=== PATIENT | male | born 1960 | race Caucasian/White ===

== ENCOUNTER 2018-10-28 05:15 | Emergency (ER) | payer OTHER ==
--- OUTSIDE RECORDS SUMMARY | 2018-10-28 05:17 | XMS REPORT ---
:1960 Author Organization eClinicalWorks Care Team Providers Name Role Phone Joce Lee Provider Role Unavailable Allergies, Adverse Reactions, Alerts Substance Reaction Event Type N.K.D.A. Info Not Available Non Drug Allergy Problems Problem Type Condition Code Onset Dates Condition Status Assessment Body mass index (BMI) of 40.0-44.9 Z68.41 Active in adult Assessment Pain, joint, knee, right M25.561 Active Assessment Morbid (severe) obesity due to E66.01 Active excess calories Assessment Sciatica of right side M54.31 Active Problem Pain, joint, knee, right M25.561 Active Problem Morbid (severe) obesity due to E66.01 Active excess calories Problem Sciatica of left side M54.32 Active Problem Body mass index (BMI) of 40.0-44.9 Z68.41 Active in adult Problem Unspecified internal derangement of M23.92 Active left knee Problem Acute pain of left knee M25.562 Active Medications Medication Code Code Instructions Start End Date Status Dosage System Date Uloric [facility][NOTE 3] 46707844173 80 MG Oral Active TAKE 1 TABLET BY MOUTH EVERY DAY Amlodipine [facility][NOTE 3] 85020531871 10-40 MG Oral Active TAKE 1 Besy-Benazepri CAPSULE BY l HCl MOUTH EVERY DAY Results No Known Results Summary Purpose eClinicalWorks Submission
[2018-10-28] MEDS ORDERED: IPRATROPIUM BROM 0.5MG/2.5ML ONE ×3 (05:50→07:40)
[2018-10-28] MEDS ORDERED: ALBUTEROL 2.5 MG/3 ML NEB SOL ONE ×3 (05:50→07:40)
[2018-10-28 06:22] LABS: Absolute Lymphocytes (CBC) 0.5 K/uL (0.7-4.9); Absolute Monocytes 0.9 K/uL (0.1-1.3); Absolute Neutrophil 4.4 K/uL (1.8-8.0); Basophils % 0.4 % (0-1.3); Eosinophils % 0.7 % (0-4.4); Hematocrit 51.4 % (39.6-49.0); Lymphocytes % 7.8 % (15.3-44.8); MPV 8.4 fL (7.6-11.3); Monocytes % 14.9 % (3.3-12.3); RBC Red Blood Cell Count 5.36 M/uL (4.33-5.43)
[2018-10-28] MEDS ORDERED: predniSONE 20 MG TAB ONE (06:22)
[2018-10-28 06:40] LABS: BUN Blood Urea Nitrogen 12 mg/dL (7-18); Bicarbonate 29 mmol/L (21-32); Glucose Level 94 mg/dL (74-106); Potassium 3.8 mmol/L (3.5-5.1); Sodium Level 144 mmol/L (136-145); Troponin (Emerg Dept Use Only) < 0.02 ng/mL (0.0-0.045)
--- NOTE | 2018-10-28 07:20 | ER ---
Nurse's Notes [facility] Name: Ayo Farrell Age: 57 yrs Sex: Male : 1960 Arrival Date: 10/28/2018 Time: 05:19 Bed 15 Private MD: Kenyon Collins V Diagnosis: Chronic obstructive pulmonary disease with (acute) exacerbation Presentation: 10/28 05:20 Presenting complaint: Patient states: I have been having a hard time breathing for the jb4 past 3 days. Transition of care: patient was not received from another setting of care. Onset of symptoms was October 25, 2018. Risk Assessment: Do you want to hurt yourself or someone else? Patient reports no desire to harm self or others. Initial Sepsis Screen: Does the patient meet any 2 criteria? RR > 20 per min. No. Patient's initial sepsis screen is negative. Does the patient have a suspected source of infection? No. Patient's initial sepsis screen is negative. Care prior to arrival: None. 05:20 Method Of Arrival: Ambulatory jb4 05:20 Acuity: GIORGIO 3 jb4 Triage Assessment: 05:20 General: Appears distressed, uncomfortable, Behavior is calm, cooperative, appropriate jb4 for age. Pain: Denies pain. EENT: No signs and/or symptoms were reported regarding the EENT system. Neuro: Level of Consciousness is awake, alert, obeys commands. Cardiovascular: Heart tones S1 S2 present Patient's skin is warm and dry. Respiratory: Reports shortness of breath on exertion cough that is productive, Airway is patent Respiratory effort is even, labored, Respiratory pattern is symmetrical, tachypnea Breath sounds are diminished bilaterally. Breath sounds with wheezes bilaterally. Onset: The symptoms/episode began/occurred gradually, the patient has moderate shortness of breath. GI: No signs and/or symptoms were reported involving the gastrointestinal system. : No signs and/or symptoms were reported regarding the genitourinary system. Derm: Skin is intact, Skin is pink, warm \\T\\ dry. Musculoskeletal: Circulation, motion, and sensation intact. Historical: - Allergies: 05:20 Iodine; jb4 - Home Meds: 05:20 Lotrel Oral [Active]; Urinol [Active]; jb4 - PMHx: 05:20 Gout; Hypertension; jb4 - PSHx: 05:20 Cyst removal; jb4 - Immunization history:: Adult Immunizations up to date, Flu vaccine is up to date. - Social history:: Smoking status: Patient uses tobacco products, smokes one pack cigarettes per day. Report quitting 3 days ago., Patient uses alcohol, occasionally. - Ebola Screening: : No symptoms or risks identified at this time. Screenin:20 Abuse screen: Denies threats or abuse. Nutritional screening: No deficits noted. jb4 Tuberculosis screening: No symptoms or risk factors identified. Fall Risk Gait- Normal/Bed Rest/Wheelchair (0 pts) Mental Status- Oriented to own ability (0 pts). Total Ball Fall Scale indicates No Risk (0-24 pts). Assessment: 05:20 General: See triage assessment.. Cardiovascular: Rhythm is sinus rhythm. jb4 06:22 Reassessment: Patient and/or family updated on plan of care and expected duration. Pain jb4 level reassessed. Respiratory: Airway is patent Respiratory effort is even, labored, Respiratory pattern is regular, tachypnea Breath sounds with wheezes bilaterally. 07:00 General: Appears in no apparent distress. comfortable, Behavior is calm, cooperative. rb1 Pain: Denies pain. Neuro: Level of Consciousness is awake, alert, obeys commands, Oriented to person, place, time, situation. Cardiovascular: Capillary refill < 3 seconds is brisk in bilateral fingers. Respiratory: Reports cough that is productive, Yellow sputum Airway is patent Respiratory effort is even, unlabored, Respiratory pattern is regular, symmetrical. GI: No signs and/or symptoms were reported involving the gastrointestinal system. : No signs and/or symptoms were reported regarding the genitourinary system. Derm: Skin is pink, warm \\T\\ dry. Musculoskeletal: Range of motion: intact in all extremities. 07:10 Reassessment: Dr. Sainz turned off the pt. oxygen to get a room air saturation. O2 sat rb1 on 3 L NC was 95% Pt. does not want to be admitted. 08:00 Reassessment: Patient appears in no apparent distress at this time. Patient and/or rb1 family updated on plan of care and expected duration. Pain level reassessed. Patient is alert, oriented x 3, equal unlabored respirations, skin warm/dry/pink. Pt. still does not wish to be admitted. Pt. stated, "I am ready to go home and get in my own bed. I feel better than I did when I first got here." Pt. was educated on COPD and was told to come back if he had difficulty breathing. Pt verbalized understanding. Patient denies pain at this time. Vital Signs: 05:20 BP 150 / 87; Pulse 89; Resp 23; Temp 98.3(O); Pulse Ox 81% on R/A; Weight 138.35 kg jb4 (R); Height 6 ft. 1 in. (185.42 cm) (R); Pain 0/10; 06:20 BP 140 / 102; Pulse 84; Resp 21; Pulse Ox 90% on 3 lpm NC; jb4 07:00 BP 150 / 99; Pulse 89; Resp 19; Pulse Ox 95% on 3 lpm NC; Pain 0/10; rb1 08:00 BP 135 / 99; Pulse 84; Resp 15; Pulse Ox 93% on R/A; Pain 0/10; rb1 05:20 Body Mass Index 40.24 (138.35 kg, 185.42 cm) jb4 ED Course: 05:19 Patient arrived in ED. es 05:20 Kenyon Collins MD is Private Physician. es 05:20 Arm band placed on left wrist. jb4 05:20 Patient has correct armband on for positive identification. Placed in gown. Bed in low jb4 position. Call light in reach. Side rails up X 1. school lunch monitor on. Pulse ox on. NIBP on. 05:28 Eren Smith, RN is Primary Nurse. jb4 05:30 Triage completed. jb4 05:38 Nader Sainz MD is Attending Physician. gs 06:00 Initial lab(s) drawn, by me, sent to lab. Inserted saline lock: 20 gauge in left jb4 antecubital area, using aseptic technique. Blood collected. Missed attempt(s): 20 gauge in right antecubital area. 06:43 XRAY Chest (1 view) In Process Unspecified. EDMS 07:19 Kenyon Collins MD is Referral Physician. gs 08:00 No provider procedures requiring assistance completed. IV discontinued, intact, rb1 bleeding controlled, No redness/swelling at site. Pressure dressing applied. Administered Medications: 05:42 Drug: AtroVENT Aerosol 0.5 mg Route: Inhalation; jb4 06:21 Follow up: Response: No adverse reaction; Wheezing unchanged jb4 05:43 Drug: Albuterol 2.5 mg Route: Inhalation; jb4 06:21 Follow up: Response: No adverse reaction; Wheezing unchanged jb4 06:14 Drug: predniSONE 40 mg Route: PO; jb4 06:28 Follow up: Response: No adverse reaction jb4 06:28 Drug: Albuterol 2.5 mg Route: Inhalation; jb4 06:54 Follow up: Response: No adverse reaction; Wheezing diminished jb4 06:29 Drug: AtroVENT Aerosol 0.5 mg Route: Inhalation; jb4 06:53 Follow up: Response: No adverse reaction; Wheezing diminished jb4 07:30 Drug: Albuterol 2.5 mg Route: Inhalation; rb1 07:30 Drug: AtroVENT Aerosol 0.5 mg Route: Inhalation; rb1 Outcome: 07:19 Discharge ordered by . gs 08:00 Discharged to home ambulatory. rb1 08:00 Condition: stable 08:00 Discharge instructions given to patient, Instructed on discharge instructions, follow up and referral plans. medication usage, Demonstrated understanding of instructions, follow-up care, medications, Prescriptions given X 3. 08:08 Patient left the ED. rb1 Signatures: Dispatcher [employer] EDMS Cinthya Concepcion Rebecca, RN RN rb1 Eren Smith RN RN jb4 Nader Sainz MD MD Corrections: (The following items were deleted from the chart) 05:35 05:20 Initial Sepsis Screen: Does the patient meet any 2 criteria? No. Patient's jb4 initial sepsis screen is negative. Does the patient have a suspected source of infection? No. Patient's initial sepsis screen is negative. jb4 07:00 05:20 Respiratory: Reports shortness of breath cough that is non-productive, Airway is jb4 patent Respiratory effort is even, labored, Respiratory pattern is symmetrical, tachypnea Breath sounds are diminished bilaterally. Breath sounds with wheezes bilaterally. Onset: The symptoms/episode began/occurred gradually, the patient has moderate shortness of breath jb4
--- NOTE | 2018-10-28 07:20 | EDPHYS ---
Physician Documentation [facility] Name: Ayo Farrell Age: 57 yrs Sex: Male : 1960 Arrival Date: 10/28/2018 Time: 05:19 Bed 15 Private MD: Kenyon Collins V ED Physician Nader Sainz HPI: 10/28 07:16 This 57 yrs old Male presents to ER via Ambulatory with complaints of gs Breathing Difficulty. 07:16 The patient has shortness of breath at rest. Onset: The symptoms/episode began/occurred gs 3 day(s) ago. Duration: The symptoms are continuous. The patient's shortness of breath is aggravated by coughing, exertion. Associated signs and symptoms: Pertinent negatives: fever. Severity of symptoms: At their worst the symptoms were moderate in the emergency department the symptoms are unchanged. The patient has experienced similar episodes in the past, several times. The patient has not recently seen a physician. Historical: - Allergies: 05:20 Iodine; jb4 - Home Meds: 05:20 Lotrel Oral [Active]; Urinol [Active]; jb4 - PMHx: 05:20 Gout; Hypertension; jb4 - PSHx: 05:20 Cyst removal; jb4 - Immunization history:: Adult Immunizations up to date, Flu vaccine is up to date. - Social history:: Smoking status: Patient uses tobacco products, smokes one pack cigarettes per day. Report quitting 3 days ago., Patient uses alcohol, occasionally. - Ebola Screening: : No symptoms or risks identified at this time. ROS: 07:16 All other systems are negative. gs Exam: 06:27 ECG was reviewed by the Attending Physician. gs 07:16 Head/Face: Normocephalic, atraumatic. Eyes: Pupils equal round and reactive to light, gs extra-ocular motions intact. Lids and lashes normal. Conjunctiva and sclera are non-icteric and not injected. Cornea within normal limits. Periorbital areas with no swelling, redness, or edema. ENT: Nares patent. No nasal discharge, no septal abnormalities noted. Tympanic membranes are normal and external auditory canals are clear. Oropharynx with no redness, swelling, or masses, exudates, or evidence of obstruction, uvula midline. Mucous membranes moist. Neck: Trachea midline, no thyromegaly or masses palpated, and no cervical lymphadenopathy. Supple, full range of motion without nuchal rigidity, or vertebral point tenderness. No Meningismus. Chest/axilla: Normal chest wall appearance and motion. Nontender with no deformity. No lesions are appreciated. Cardiovascular: Regular rate and rhythm with a normal S1 and S2. No gallops, murmurs, or rubs. Normal PMI, no JVD. No pulse deficits. Abdomen/GI: Soft, non-tender, with normal bowel sounds. No distension or tympany. No guarding or rebound. No evidence of tenderness throughout. Back: No spinal tenderness. No costovertebral tenderness. Full range of motion. Skin: Warm, dry with normal turgor. Normal color with no rashes, no lesions, and no evidence of cellulitis. MS/ Extremity: Pulses equal, no cyanosis. Neurovascular intact. Full, normal range of motion. Neuro: Awake and alert, GCS 15, oriented to person, place, time, and situation. Cranial nerves II-XII grossly intact. Motor strength 5/5 in all extremities. Sensory grossly intact. Cerebellar exam normal. Normal gait. 07:16 Constitutional: The patient appears alert, awake, in obvious distress, moderately distressed. 07:16 Respiratory: mild respiratory distress is noted, Respirations: tachypnea, that is mild, Breath sounds: decreased breath sounds, that are moderate, are located in both bases, rhonchi, that are mild, are scattered. Vital Signs: 05:20 BP 150 / 87; Pulse 89; Resp 23; Temp 98.3(O); Pulse Ox 81% on R/A; Weight 138.35 kg jb4 (R); Height 6 ft. 1 in. (185.42 cm) (R); Pain 0/10; 06:20 BP 140 / 102; Pulse 84; Resp 21; Pulse Ox 90% on 3 lpm NC; jb4 07:00 BP 150 / 99; Pulse 89; Resp 19; Pulse Ox 95% on 3 lpm NC; Pain 0/10; rb1 08:00 BP 135 / 99; Pulse 84; Resp 15; Pulse Ox 93% on R/A; Pain 0/10; rb1 05:20 Body Mass Index 40.24 (138.35 kg, 185.42 cm) jb4 MDM: 05:38 Patient medically screened. 07:16 ED course: much better sats 93 on room air refuses admission. 07:16 Differential diagnosis: Bronchitis CHF exacerbation, Chronic Obstructive Pulmonary gs Disease pneumonia. Data reviewed: vital signs, nurses notes. Response to treatment: the patient's symptoms have markedly improved after treatment. 10/28 05:39 Order name: Basic Metabolic Panel; Complete Time: 07:11 10/28 05:39 Order name: CBC with Diff; Complete Time: 06:27 gs 10/28 05:39 Order name: Troponin (emerg Dept Use Only); Complete Time: 07:11 gs 10/28 05:39 Order name: XRAY Chest (1 view) 10/28 05:39 Order name: EKG; Complete Time: 05:40 10/28 05:39 Order name: Cardiac monitoring; Complete Time: 05:42 gs 10/28 05:39 Order name: EKG - Nurse/Tech; Complete Time: 05:52 gs 10/28 05:39 Order name: IV Saline Lock; Complete Time: 06:15 10/28 05:39 Order name: Labs collected and sent; Complete Time: 06:15 10/28 05:39 Order name: O2 Per Protocol; Complete Time: 05:42 gs 10/28 05:39 Order name: O2 Sat Monitoring; Complete Time: 05:42 gs EC:27 Rate is 81 beats/min. Rhythm is regular. [place] interval is normal. QRS interval is gs prolonged. No Q waves. T waves are Flattened. Clinical impression: NSR w/ Non-specific ST/T Changes. Interpreted by me. Administered Medications: 05:42 Drug: AtroVENT Aerosol 0.5 mg Route: Inhalation; jb4 06:21 Follow up: Response: No adverse reaction; Wheezing unchanged jb4 05:43 Drug: Albuterol 2.5 mg Route: Inhalation; jb4 06:21 Follow up: Response: No adverse reaction; Wheezing unchanged jb4 06:14 Drug: predniSONE 40 mg Route: PO; jb4 06:28 Follow up: Response: No adverse reaction jb4 06:28 Drug: Albuterol 2.5 mg Route: Inhalation; jb4 06:54 Follow up: Response: No adverse reaction; Wheezing diminished jb4 06:29 Drug: AtroVENT Aerosol 0.5 mg Route: Inhalation; jb4 06:53 Follow up: Response: No adverse reaction; Wheezing diminished jb4 07:30 Drug: Albuterol 2.5 mg Route: Inhalation; rb1 07:30 Drug: AtroVENT Aerosol 0.5 mg Route: Inhalation; rb1 Disposition: 10/28/18 07:19 Discharged to Home. Impression: Chronic obstructive pulmonary disease with (acute) exacerbation. - Condition is Stable. - Discharge Instructions: Chronic Obstructive Pulmonary Disease, Steps to Quit Smoking. - Prescriptions for Zithromax Z- Felix 250 mg Oral Tablet - take 1 tablet by ORAL route as directed for 5 days Day 1 - take two (2) tablets one time. Day 2, 3, 4 , 5 take one (1) tablet once daily.; 6 tablet. Prednisone 20 mg Oral Tablet - take 2 tablet by ORAL route once daily for 5 days; 10 tablet. Albuterol Sulfate 90 mcg/actuation - inhale 1-2 puff by INHALATION route every 4-6 hours; 1 Inhaler. - Medication Reconciliation Form, Thank You Letter, Antibiotic Education, Prescription Opioid Use form. - Follow up: Kenyon Collins; When: 2 - 3 days; Reason: Re-evaluation by your physician. Signatures: Dispatcher [employer] EDMS Stacia Morales RN RN rb1 Eren Smith RN RN jb4 Nader Sainz MD MD gs Corrections: (The following items were deleted from the chart) 08:08 07:19 10/28/2018 07:19 Discharged to Home. Impression: Chronic obstructive pulmonary rb1 disease with (acute) exacerbation. Condition is Stable. Discharge Instructions: Chronic Obstructive Pulmonary Disease, Steps to Quit Smoking. Prescriptions for Zithromax Z-Felix 250 mg Oral Tablet - take 1 tablet by ORAL route as directed for 5 days Day 1 - take two (2) tablets one time. Day 2, 3, 4 , 5 take one (1) tablet once daily.; 6 tablet, Prednisone 20 mg Oral Tablet - take 2 tablet by ORAL route once daily for 5 days; 10 tablet, Albuterol Sulfate 90 mcg/actuation - inhale 1-2 puff by INHALATION route every 4-6 hours; 1 Inhaler. and Forms are Medication Reconciliation Form, Thank You Letter, Antibiotic Education, Prescription Opioid Use. Follow up: Kenyon Collins; When: 2 - 3 days; Reason: Re-evaluation by your physician. gs
--- NOTE | 2018-10-28 09:48 | RAD REPORT ---
EXAM DESCRIPTION: RAD - Chest Single View - 10/28/2018 6:43 am CLINICAL HISTORY: COPD, shortness of breath COMPARISON: August 2017 TECHNIQUE: AP portable chest image was obtained 0635 hours . FINDINGS: Lungs are clear. Lung markings are similar to comparison. Heart and vasculature are normal . No measurable pleural effusion and no pneumothorax. No acute bony abnormality seen. No acute aortic findings suspected. IMPRESSION: No acute cardiopulmonary process. No significant change from comparison.
--- NOTE | 2018-10-28 21:13 | EKG ---
Test Date: 2018-10-28 Test Time: 05:49:45 [employer]quer Mixer: VERNON MEASUREMENT RESULTS: Intervals: Rate: 81 MS: 166 QRSD: 154 QT: 410 QTc: 476 [place]: P: 62 MS: 166 QRS: -76 T: 27 INTERPRETIVE STATEMENTS: Normal sinus rhythm Possible Left atrial enlargement Right bundle branch block Left axis Abnormal ECG Compared to ECG 08/27/2017 08:38:39 Right bundle-branch block now present Electronically Signed On 10-28-18 21:12:40 DIRECTOR WOMEN by Irving Lee
== END 2018-10-28 08:08 | disposition home or self-care (01) ==
LOC: ER 05:15
DX: J44.1 Chronic obstructive pulmonary disease with (acute) exacerbation (principal); I10 Essential (primary) hypertension; F17.210 Nicotine dependence, cigarettes, uncomplicated; Z91.048 Other nonmedicinal substance allergy status
CPT/HCPCS: 36415; 71045; 80048; 84484; 85025; 93005; 99285; J7512

== ENCOUNTER 2018-10-29 10:11 | Inpatient (IN) | payer OTHER ==
--- OUTSIDE RECORDS SUMMARY | 2018-10-29 10:14 | XMS REPORT ---
[...] End Date Status Dosage System Date Uloric [facility] [id number] 80 MG Oral Active TAKE 1 TABLET BY MOUTH EVERY DAY Amlodipine [facility] [id number] 10-40 MG Oral Active TAKE 1 Besy-Benazepri CAPSULE BY l HCl MOUTH EVERY DAY Results No Known Results Summary Purpose eClinicalWorks Submission
[2018-10-29] MEDS ORDERED: METHYLPREDNISOLONE 125 MG INJ ONE (10:52)
[2018-10-29] MEDS ORDERED: DEXAMETHASONE 4 MG/ML VIAL ONE (10:53)
[2018-10-29] MEDS ORDERED: Levofloxacin 750mg IV 750 MG/150 ML BAG IV ONE (10:53)
[2018-10-29] MEDS ORDERED: ALBUTEROL 2.5 MG/3 ML NEB SOL ONE (10:53)
[2018-10-29] MEDS ORDERED: FAMOTIDINE 20 MG/2 ML VIAL IV ONE (10:53)
[2018-10-29] MEDS ORDERED: IPRATROPIUM BROM 0.5MG/2.5ML ONE (10:53)
[2018-10-29] MEDS ORDERED: NA CHLORIDE 0.9% 1,000 ML ONE (10:53)
--- NOTE | 2018-10-29 11:18 | ER ---
Nurse's Notes [facility] Name: Ayo Farrell Age: 57 yrs Sex: Male : 1960 Arrival Date: 10/29/2018 Time: 10:13 Bed 18 Private MD: Kenyon Collins V Diagnosis: Dyspnea;Hypoxemia;Chronic obstructive pulmonary disease with (acute) exacerbation;Tobacco abuse counseling;Tobacco use;Obesity, unspecified Presentation: 10/29 10:22 Presenting complaint: Patient states: difficulty breathing x 2-3 days. Denies fever. Pt ss reports he was here yesterday, and was supposed to be admitted, but he has too many animals, and therefore refused admission. Transition of care: patient was not received from another setting of care. Onset of symptoms was October 27, 2018. Risk Assessment: Do you want to hurt yourself or someone else? Patient reports no desire to harm self or others. Initial Sepsis Screen: Does the patient meet any 2 criteria? RR > 20 per min. HR > 90 bpm. Does the patient have a suspected source of infection? No. Patient's initial sepsis screen is negative. Care prior to arrival: None. 10:22 Method Of Arrival: Ambulatory ss 10:22 Acuity: GIORGIO 2 ss Triage Assessment: 11:00 Respiratory: the patient has moderate shortness of breath. sv Historical: - Allergies: 10:25 Iodine; ss - PMHx: 10:25 Gout; Hypertension; COPD; ss - PSHx: 10:25 Cyst removal; ss - Immunization history:: Adult Immunizations not up to date. - Social history:: Smoking status: Patient/guardian denies using tobacco. - Ebola Screening: : Patient denies exposure to infectious person Patient denies travel to an Ebola-affected area in the 21 days before illness onset. - Family history:: not pertinent. Screenin:00 Abuse screen: Denies threats or abuse. Denies injuries from another. Nutritional sv screening: No deficits noted. Tuberculosis screening: No symptoms or risk factors identified. Fall Risk None identified. Assessment: 11:00 General: Appears in no apparent distress. uncomfortable, obese, well developed, sv Behavior is calm, cooperative, appropriate for age. Pain: Denies pain. Neuro: Level of Consciousness is awake, alert, obeys commands, Oriented to person, place, time, situation, Moves all extremities. Full function Gait is steady, Speech is normal. Cardiovascular: Heart tones S1 S2 present Patient's skin is warm and dry. Rhythm is sinus rhythm Chest pain is denied. Respiratory: Reports shortness of breath at rest on exertion labored breathing Airway is patent Respiratory effort is even, labored, Respiratory pattern is symmetrical, tachypnea Breath sounds with wheezes bilaterally. the patient has moderate shortness of breath. Derm: Skin is pink, warm \T\ dry. Musculoskeletal: Range of motion: intact in all extremities. 11:46 Reassessment: Patient appears in no apparent distress at this time. No changes from sv previously documented assessment. Patient and/or family updated on plan of care and expected duration. Pain level reassessed. Patient is alert, oriented x 3, equal unlabored respirations, skin warm/dry/pink. 12:16 Reassessment: Patient appears in no apparent distress at this time. No changes from sv previously documented assessment. Patient and/or family updated on plan of care and expected duration. Pain level reassessed. Patient is alert, oriented x 3, equal unlabored respirations, skin warm/dry/pink. 12:30 Reassessment: Nurse to call back for report. sv 12:35 Reassessment: Patient appears in no apparent distress at this time. Patient and/or sv family updated on plan of care and expected duration. Pain level reassessed. Patient is alert, oriented x 3, equal unlabored respirations, skin warm/dry/pink. 13:24 Reassessment: Patient appears in no apparent distress at this time. Patient and/or sv family updated on plan of care and expected duration. Pain level reassessed. Patient is alert, oriented x 3, equal unlabored respirations, skin warm/dry/pink. Patient states feeling better. Vital Signs: 10:25 BP 164 / 104; Pulse 102; Resp 26; Pulse Ox 85% on R/A; Weight 138.35 kg; Height 6 ft. 1 ss in. (185.42 cm); 11:27 BP 147 / 86; Pulse 105; Resp 23; Temp 97.2; Pulse Ox 91% on 3 lpm NC; mh5 12:30 BP 137 / 78; Pulse 109; Resp 24; Pulse Ox 96% on Nebulizer Mask; sv 13:15 BP 130 / 77; Pulse 103; Resp 28; Pulse Ox 96% on 3 lpm NC; sv 10:25 Body Mass Index 40.24 (138.35 kg, 185.42 cm) ED Course: 10:13 Patient arrived in ED. mr 10:14 Kenyon Collins MD is Private Physician. mr 10:14 Tanner Lang MD is Attending Physician. elodia 10:24 Triage completed. ss 10:25 Arm band placed on right wrist. ss 10:39 Sherley Chamberlain, MANJU is Primary Nurse. sv 10:43 Patient has correct armband on for positive identification. Placed in gown. Bed in low mh5 position. Call light in reach. Side rails up X2. Warm blanket given. air sampling and monitoring on. Pulse ox on. NIBP on. 10:43 EKG done, by ED staff. 5 11:05 Initial lab(s) drawn, by me, sent to lab. First set of blood cultures drawn by me. sv Inserted saline lock: 20 gauge in right antecubital area, using aseptic technique. Blood collected. Flushed right antecubital with 5 ml normal saline. 11:16 Kenyon Collins MD is Hospitalizing Provider. elodia 11:20 Second set of blood cultures drawn by vt. sv 13:24 No provider procedures requiring assistance completed. Patient admitted, IV remains in sv place. intact. Administered Medications: 11:15 Drug: Albuterol - atroVENT (3:1) (2.5 mg - 0.5 mg) 3 ml Route: Nebulizer; sv 11:30 Follow up: Response: No adverse reaction sv 11:21 Drug: Pepcid 20 mg Route: IVP; Site: right antecubital; sv 11:30 Follow up: Response: No adverse reaction sv 11:21 Drug: NS 0.9% 500 ml Route: IV; Rate: bolus; Site: right antecubital; sv 11:45 Follow up: Response: No adverse reaction; IV Status: Completed infusion; IV Intake: sv 500ml 11:23 Drug: Decadron - Dexamethasone 10 mg Route: IVP; Site: right antecubital; sv 11:30 Follow up: Response: No adverse reaction sv 11:25 Drug: SOLU-Medrol 125 mg Route: IVP; Site: right antecubital; sv 11:30 Follow up: Response: No adverse reaction sv 11:27 Drug: levofloxacin 750 mg Volume: 150 ml; Route: IVPB; Infused Over: 90 mins; Site: sv right antecubital; 13:24 Follow up: Response: No adverse reaction; IV Status: Completed infusion; IV Intake: sv 150ml 11:46 Drug: NS 0.9% 1000 ml Route: IV; Rate: 125 ml/hr; Site: right antecubital; sv 13:24 Follow up: Response: No adverse reaction; IV Status: Infusion continued upon admission sv 12:16 Drug: Xopenex 3.75 mg Route: Inhalation; sv 12:35 Drug: Lovenox 40 mg Route: Sub-Q; Site: left lower abdomen; sv 13:00 Follow up: Response: No adverse reaction sv 13:24 Drug: Magnesium Sulfate 1 grams Route: IVPB; Infused Over: 1 hrs; Site: right sv antecubital; 13:24 Follow up: Response: No adverse reaction; IV Status: Infusion continued upon admission sv Intake: 11:45 IV: 500ml; Total: 500ml. sv 13:24 IV: 150ml; Total: 650ml. sv Outcome: 11:17 Decision to Hospitalize by Provider. [facility] 13:24 Patient left the ED. sv 13:24 Admitted to Tele accompanied by tech, via wheelchair, with oxygen, with chart, Report sv called to Alberta NUNES 13:24 Condition: stable 13:24 Instructed on the need for admit. Signatures: Sherley Chamberlain, RN Tanner Hernandez MD MD cha Rivera, Mary mr Smirch, Shelby, Aminah Manjarrez RN [facility] Corrections: (The following items were deleted from the chart) 11:35 10:21 NS 0.9% 500 ml IV at bolus in right antecubital sv sv 11:35 10:21 Pepcid 20 mg IVP in right antecubital sv sv
--- NOTE | 2018-10-29 11:18 | EDPHYS ---
Physician Documentation [facility] Name: Ayo Farrell Age: 57 yrs Sex: Male : 1960 Arrival Date: 10/29/2018 Time: 10:13 Bed 18 Private MD: Kenyon Collins V ED Physician Tanner Lang HPI: 10/29 10:25 This 57 yrs old Male presents to ER via Ambulatory with complaints of elodia Breathing Difficulty. 10:25 The patient has shortness of breath at rest, with light activity. Onset: The elodia symptoms/episode began/occurred 3 day(s) ago. Duration: The symptoms are continuous, and are steadily getting worse. The patient's shortness of breath has no apparent modifying factors. Associated signs and symptoms: The patient has no apparent associated signs or symptoms. Severity of symptoms: At their worst the symptoms were. The patient has experienced similar episodes in the past, several times. Historical: - Allergies: 10:25 Iodine; ss - PMHx: 10:25 Gout; Hypertension; COPD; ss - PSHx: 10:25 Cyst removal; ss - Immunization history:: Adult Immunizations not up to date. - Social history:: Smoking status: Patient/guardian denies using tobacco. - Ebola Screening: : Patient denies exposure to infectious person Patient denies travel to an Ebola-affected area in the 21 days before illness onset. - Family history:: not pertinent. ROS: 10:25 Constitutional: Negative for fever, chills, and weight loss, Eyes: Negative for injury, elodia pain, redness, and discharge, ENT: Negative for injury, pain, and discharge, Neck: Negative for injury, pain, and swelling, Cardiovascular: Negative for chest pain, palpitations, and edema, Abdomen/GI: Negative for abdominal pain, nausea, vomiting, diarrhea, and constipation, Back: Negative for injury and pain, : Negative for injury, bleeding, discharge, and swelling, MS/Extremity: Negative for injury and deformity, Skin: Negative for injury, rash, and discoloration, Neuro: Negative for headache, weakness, numbness, tingling, and seizure, Psych: Negative for depression, anxiety, suicide ideation, homicidal ideation, and hallucinations, Allergy/Immunology: Negative for hives, rash, and allergies, Endocrine: Negative for neck swelling, polydipsia, polyuria, polyphagia, and marked weight changes. 10:25 Respiratory: Positive for cough, shortness of breath, wheezing, inspiratory, expiratory. Exam: 10:25 Constitutional: This is a well developed, well nourished patient who is awake, alert, elodia and in no acute distress. Head/Face: Normocephalic, atraumatic. Eyes: Pupils equal round and reactive to light, extra-ocular motions intact. Lids and lashes normal. Conjunctiva and sclera are non-icteric and not injected. Cornea within normal limits. Periorbital areas with no swelling, redness, or edema. ENT: Nares patent. No nasal discharge, no septal abnormalities noted. Tympanic membranes are normal and external auditory canals are clear. Oropharynx with no redness, swelling, or masses, exudates, or evidence of obstruction, uvula midline. Mucous membranes moist. Neck: Trachea midline, no thyromegaly or masses palpated, and no cervical lymphadenopathy. Supple, full range of motion without nuchal rigidity, or vertebral point tenderness. No Meningismus. Chest/axilla: Normal chest wall appearance and motion. Nontender with no deformity. No lesions are appreciated. Cardiovascular: Regular rate and rhythm with a normal S1 and S2. No gallops, murmurs, or rubs. Normal PMI, no JVD. No pulse deficits. Abdomen/GI: Soft, non-tender, with normal bowel sounds. No distension or tympany. No guarding or rebound. No evidence of tenderness throughout. Back: No spinal tenderness. No costovertebral tenderness. Full range of motion. Male : Normal genitalia with no discharge or lesions. Skin: Warm, dry with normal turgor. Normal color with no rashes, no lesions, and no evidence of cellulitis. MS/ Extremity: Pulses equal, no cyanosis. Neurovascular intact. Full, normal range of motion. Neuro: Awake and alert, GCS 15, oriented to person, place, time, and situation. Cranial nerves II-XII grossly intact. Motor strength 5/5 in all extremities. Sensory grossly intact. Cerebellar exam normal. Normal gait. Psych: Awake, alert, with orientation to person, place and time. Behavior, mood, and affect are within normal limits. 10:25 Respiratory: mild respiratory distress is noted, moderate respiratory distress is noted, Respirations: normal, Breath sounds: bronchial sounds, decreased breath sounds, rhonchi, wheezing: inspiratory expiratory Vital Signs: 10:25 BP 164 / 104; Pulse 102; Resp 26; Pulse Ox 85% on R/A; Weight 138.35 kg; Height 6 ft. 1 ss in. (185.42 cm); 11:27 BP 147 / 86; Pulse 105; Resp 23; Temp 97.2; Pulse Ox 91% on 3 lpm NC; mh5 12:30 BP 137 / 78; Pulse 109; Resp 24; Pulse Ox 96% on Nebulizer Mask; sv 13:15 BP 130 / 77; Pulse 103; Resp 28; Pulse Ox 96% on 3 lpm NC; sv 10:25 Body Mass Index 40.24 (138.35 kg, 185.42 cm) ss MDM: 10:14 Patient medically screened. [facility] 10:26 Data reviewed: vital signs, nurses notes, lab test result(s), EKG, radiologic studies, elodia CT scan, plain films. 10/29 10:25 Order name: Basic Metabolic Panel; Complete Time: 12:11 [facility] 10/29 10:25 Order name: CBC with Diff [facility] 10/29 10:25 Order name: LFT's; Complete Time: 12:11 [facility] 10/29 10:25 Order name: Magnesium; Complete Time: 12:11 [facility] 10/29 10:25 Order name: NT PRO-BNP; Complete Time: 12:11 [facility] 10/29 10:25 Order name: PT-INR; Complete Time: 12:11 [facility] 10/29 10:25 Order name: Troponin (emerg Dept Use Only); Complete Time: 12:11 [facility] 10/29 10:25 Order name: XRAY Chest (1 view) [facility] 10/29 10:25 Order name: Blood Culture Adult (2) [facility] 10/29 11:15 Order name: ABG; Complete Time: 12:11 [facility] 10/29 12:03 Order name: RAD; Complete Time: 12:11 EDMS 10/29 12:12 Order name: CBC Smear Scan EDAL 10/29 10:25 Order name: EKG; Complete Time: 10:26 [facility] 10/29 10:25 Order name: Cardiac monitoring; Complete Time: 11:38 [facility] 10/29 10:25 Order name: EKG - Nurse/Tech; Complete Time: 11:38 [facility] 10/29 10:25 Order name: IV Saline Lock; Complete Time: 11:38 [facility] 10/29 10:25 Order name: Labs collected and sent; Complete Time: [facility] 10/29 10:25 Order name: O2 Per Protocol; Complete Time: [facility] 10/29 10:25 Order name: O2 Sat Monitoring; Complete Time: :38 [facility] Administered Medications: 11:15 Drug: Albuterol - atroVENT (3:1) (2.5 mg - 0.5 mg) 3 ml Route: Nebulizer; sv 11:30 Follow up: Response: No adverse reaction sv 11:21 Drug: Pepcid 20 mg Route: IVP; Site: right antecubital; sv 11:30 Follow up: Response: No adverse reaction sv 11:21 Drug: NS 0.9% 500 ml Route: IV; Rate: bolus; Site: right antecubital; sv 11:45 Follow up: Response: No adverse reaction; IV Status: Completed infusion; IV Intake: sv 500ml 11:23 Drug: Decadron - Dexamethasone 10 mg Route: IVP; Site: right antecubital; sv 11:30 Follow up: Response: No adverse reaction sv 11:25 Drug: SOLU-Medrol 125 mg Route: IVP; Site: right antecubital; sv 11:30 Follow up: Response: No adverse reaction sv 11:27 Drug: levofloxacin 750 mg Volume: 150 ml; Route: IVPB; Infused Over: 90 mins; Site: sv right antecubital; 13:24 Follow up: Response: No adverse reaction; IV Status: Completed infusion; IV Intake: sv 150ml 11:46 Drug: NS 0.9% 1000 ml Route: IV; Rate: 125 ml/hr; Site: right antecubital; sv 13:24 Follow up: Response: No adverse reaction; IV Status: Infusion continued upon admission sv 12:16 Drug: Xopenex 3.75 mg Route: Inhalation; sv 12:35 Drug: Lovenox 40 mg Route: Sub-Q; Site: left lower abdomen; sv 13:00 Follow up: Response: No adverse reaction sv 13:24 Drug: Magnesium Sulfate 1 grams Route: IVPB; Infused Over: 1 hrs; Site: right sv antecubital; 13:24 Follow up: Response: No adverse reaction; IV Status: Infusion continued upon admission sv Disposition: 03/10/19 11:17 Hospitalization ordered by Kenyon Collins for Inpatient Admission. Preliminary diagnosis are Dyspnea, Hypoxemia, Chronic obstructive pulmonary disease with (acute) exacerbation, Tobacco abuse counseling, Tobacco use, Obesity, unspecified. - Bed requested for Telemetry/MedSurg (Inpatient). - Status is Inpatient Admission. sv - Condition is Fair. - Problem is new. - Symptoms have improved. UTI on Admission? No Signatures: Dispatcher [employer] Sherley Engle RN RN sv Anderson, Corey, MD MD cha Solis, Maria ms Smirch, Shelby, RN RN Corrections: (The following items were deleted from the chart) 11:44 11:17 Hospitalization Ordered by Kenyon Collins MD for Inpatient Admission. Preliminary ms diagnosis is Dyspnea; Hypoxemia; Chronic obstructive pulmonary disease with (acute) exacerbation; Tobacco abuse counseling; Tobacco use; Obesity, unspecified. Bed requested for Telemetry/MedSurg (Inpatient). Status is Inpatient Admission. Condition is Fair. Problem is new. Symptoms have improved. UTI on Admission? No. [facility] 13:24 11:44 10/29/2018 11:17 Hospitalization Ordered by Kenyon Collins MD for Inpatient sv Admission. Preliminary diagnosis is Dyspnea; Hypoxemia; Chronic obstructive pulmonary disease with (acute) exacerbation; Tobacco abuse counseling; Tobacco use; Obesity, unspecified. Bed requested for Telemetry/MedSurg (Inpatient). Status is Inpatient Admission. Condition is Fair. Problem is new. Symptoms have improved. UTI on Admission? No. ms
[2018-10-29 11:36] LABS: Absolute Lymphocytes (CBC) 0.3 K/uL (0.7-4.9); Absolute Monocytes 0.4 K/uL (0.1-1.3); Absolute Neutrophil 5.5 K/uL (1.8-8.0); Basophils % 0.2 % (0-1.3); Hematocrit 50.4 % (39.6-49.0); Lymphocytes % 5.5 % (15.3-44.8); MPV 8.5 fL (7.6-11.3); Monocytes % 6.3 % (3.3-12.3); Protime INR 1.04; RBC Red Blood Cell Count 5.25 M/uL (4.33-5.43)
[2018-10-29 11:50] LABS: ALT/SGPT 42 U/L (12-78); AST/SGOT 47 U/L (15-37); Alkaline Phosphatase 99 U/L (45-117); BUN Blood Urea Nitrogen 12 mg/dL (7-18); Bicarbonate 31 mmol/L (21-32); Bilirubin Direct 0.1 mg/dL (0-0.2); Bilirubin Total 0.5 mg/dL (0.2-1.0); Glucose Level 155 mg/dL (74-106); Magnesium 2.1 mg/dL (1.8-2.4); NT PRO-BNP 138 pg/mL (<125); Potassium 4.3 mmol/L (3.5-5.1); Protein, Total 7.9 g/dL (6.4-8.2); Sodium Level 137 mmol/L (136-145); Troponin (Emerg Dept Use Only) < 0.02 ng/mL (0.0-0.045)
[2018-10-29] MEDS ORDERED: MAGNESIUM SULFATE 1 gm IVPB 1 GM/100 ML BAG IV ONE (11:51)
[2018-10-29 11:52] LABS: Arterial Blood Carboxyhemoglob 1.2 % (0-1.5); Blood Gas Oxyhemoglobin 88.2 % (94-97); Blood O2 Saturation 90.3 % (92-98.5)
--- NOTE | 2018-10-29 12:03 | RAD REPORT ---
EXAM DESCRIPTION: RAD - Chest Single View - 10/29/2018 11:41 am CLINICAL HISTORY: Cough;COPD Chest pain. COMPARISON: Chest Single View dated 10/28/2018; Chest Single View dated 08/27/2017; CHEST SINGLE VIEW da michelle 08/20/2013; CHEST PA AND LAT 2 VIEW dated 09/14/2011 FINDINGS: Portable technique limits examination quality. The lungs are grossly clear. The heart is normal in size. No displaced fractures. IMPRESSION: No acute intrathoracic process suspected.
[2018-10-29 12:11] LABS: Blood Morphology Comment NOT SEEN (NOT SEEN); Platelet Estimate ADEQ; Urine White Blood Cell Casts OK
[2018-10-29] MEDS ORDERED: LEVALBUTEROL 1.25 MG/3 ML NEB ONE (12:18)
[2018-10-29] MEDS ORDERED: ENOXAPARIN 40 MG/0.4 ML SQ ONE (12:39)
[2018-10-29] MEDS ORDERED: ONDANSETRON 4 MG/2 ML VIAL IV PRN (13:31)
[2018-10-29] MEDS ORDERED: ACETAMINOPHEN 325 MG TABLET PO PRN (13:31)
[2018-10-29] MEDS: METHYLPREDNISOLONE 40 MG INJ IV SCH ×3 (14:00→23:39)
[2018-10-29] MEDS ORDERED: ENOXAPARIN 40 MG/0.4 ML SQ SCH (14:00)
--- NOTE | 2018-10-29 14:33 | P.HP ---
Certification for Inpatient Patient admitted to: Observation With expected LOS: <2 Midnights Practitioner: I am a practitioner with admitting privileges, knowledge of patient current condition, hospital course, and medical plan of care. Services: Services provided to patient in accordance with Admission requirements found in Title 42 Section 412.3 of the Code of Federal Regulations Patient History Date of Service: 10/29/18 Reason for admission: DYSPNEA History of Present Illness: IS A SMOKER WHO STARTED TO GET DYSPNEIC OVER TIME NOW WORSE FOR LAST 3 DAYS. HE HAS NO CHEST PAIN. HE HAD QUIT BUT GOT BACK TO SMOKING ABOUT 6 MONTHS AGO WHEN HE RETIRED. HE IS DYSPNEIC AT REST. Allergies iodine Allergy (Mild, Verified 10/29/18 13:46) Unknown Home Medications: Bisoprolol Fumarate [Zebeta*] 10 mg PO DAILY 10/29/18 Celecoxib 200 mg PO DAILY 10/29/18 Fenofibrate [Tricor*] 145 mg pe PO DAILY 10/29/18 predniSONE [Prednisone*] 40 mg PO DAILY 10/29/18 - Past Medical/Surgical History Has patient received pneumonia vaccine in the past: No Diabetic: No -: COPD -: BRONCHITIS 2018 -: ARTHRITIS BOTH KNEES - Family History Father -: Cancer Notes: COLON CANCER - Mother -: Cancer Notes: LUNG CANCER, ALZHEIMERS - Social History Smoking Status: Former smoker Alcohol use: No CD- Drugs: No Caffeine use: No Place of Residence: Home Review of Systems 10-point ROS is otherwise unremarkable Respiratory: Shortness of Breath Physical Examination - Vital Signs Temperature: 97.2 F Blood Pressure: 137/78 Pulse: 109 Respirations: 24 - Physical Exam General: Alert, Moderate distress, Obese HEENT: Atraumatic, PERRLA, Mucous membr. moist/pink, EOMI, Sclerae nonicteric Neck: Supple, 2+ carotid pulse no bruit, No LAD, Without JVD or thyroid abnormality Respiratory: Diminished, Inspiratory wheezes Cardiovascular: Regular rate/rhythm, Normal S1 S2 Gastrointestinal: Normal bowel sounds, No tenderness Musculoskeletal: No tenderness Integumentary: No rashes Neurological: Normal gait, Normal speech, Normal strength at 5/5 x4 extr, Normal tone, Normal affect Lymphatics: No axilla or inguinal lymphadenopathy - Studies Laboratory Data (last 24 hrs) 10/29/18 11:05: PT 12.3, INR 1.04 10/29/18 11:05: WBC 6.2, Hgb 17.0, Hct 50.4 H, Plt Count 140 L 10/29/18 11:05: Sodium 137, Potassium 4.3, BUN 12, Creatinine 0.80, Glucose 155 H, Magnesium 2.1, Total Bilirubin 0.5, AST 47 H, ALT 42, Alkaline Phosphatase 99 Assessment and Plan - Problems (Diagnosis) (1) COPD exacerbation Current Visit: Yes Status: Acute Plan: STEROIDS IV. NEBS ABX IV. BIPAP PRN. PROGNOSIS GUARDED. I CALLED IN CHANTIX FROM OFFICE. (2) HTN (hypertension) Current Visit: Yes Status: Chronic Plan: WATCHED IN OFFICE RTN. Qualifiers: Hypertension type: essential hypertension Qualified Code(s): I10 - Essential (primary) hypertension - Advance Directives Does patient have a Living Will: No Does patient have a Durable POA for Healthcare: No
[2018-10-29] MEDS: HYDROCODONE/CHLORPHEN 5 ML/OSYR PO PRN (22:05)
[2018-10-29] MEDS: FAMOTIDINE 20 MG/2 ML VIAL IV SCH (22:05)
[2018-10-30 05:36] LABS: Absolute Lymphocytes (CBC) 0.3 K/uL (0.7-4.9); Absolute Monocytes 0.6 K/uL (0.1-1.3); Absolute Neutrophil 6.6 K/uL (1.8-8.0); Hematocrit 50.2 % (39.6-49.0); Lymphocytes % 4.5 % (15.3-44.8); MPV 8.4 fL (7.6-11.3); Monocytes % 7.9 % (3.3-12.3); RBC Red Blood Cell Count 5.13 M/uL (4.33-5.43)
[2018-10-30 05:48] LABS: Potassium 4.6 mmol/L (3.5-5.1)
[2018-10-30] MEDS: METHYLPREDNISOLONE 40 MG INJ IV SCH ×3 (06:00→17:18)
[2018-10-30 06:42] LABS: Blood Morphology Comment NOT SEEN (NOT SEEN); Platelet Estimate ADEQ
--- NOTE | 2018-10-30 08:28 | RAD REPORT ---
EXAM DESCRIPTION: RAD - Chest Single View - 10/30/2018 6:26 am CLINICAL HISTORY: Chest Pain Chest pain. COMPARISON: Chest Single View dated 10/29/2018; Chest Single View dated 10/28/2018; Chest Single View d ated 08/27/2017; CHEST SINGLE VIEW dated 08/20/2013 FINDINGS: Portable technique limits examination quality. The lungs are grossly clear. The heart is normal in size. No displaced fractures. IMPRESSION: No acute intrathoracic process suspected.
--- NOTE | 2018-10-30 08:39 | EKG ---
Test Date: 2018-10-29 Test Time: 09:48:32 Machinist Mechanic: RADHA MEASUREMENT RESULTS: Intervals: Rate: 94 TX: 170 QRSD: 154 QT: 412 QTc: 515 [place]: P: 56 TX: 170 QRS: -74 T: 46 INTERPRETIVE STATEMENTS: Normal sinus rhythm Possible Left atrial enlargement Right bundle branch block Left axis Abnormal ECG Compared to ECG 10/28/2018 05:49:45 no significant change from previous ECG Electronically Signed On 10-30-18 08:38:47 CDT by Irving Lee
[2018-10-30] MEDS ORDERED: HOME MED 1 EA UNK (Celecoxib [Celecoxib] 200 MG) PO SCH (09:00)
[2018-10-30] MEDS: CELECOXIB 100 MG CAPSULE PO SCH (09:00)
[2018-10-30] MEDS: HYDROCODONE/CHLORPHEN 5 ML/OSYR PO PRN ×2 (10:15→21:51)
[2018-10-30] MEDS: BISOPROLOL 5 MG TABLET PO SCH (10:15)
[2018-10-30] MEDS: FENOFIBRATE 160 MG TAB PO SCH (10:16)
[2018-10-30] MEDS: ENOXAPARIN 40 MG/0.4 ML SQ SCH (10:16)
[2018-10-30] MEDS: FAMOTIDINE 20 MG/2 ML VIAL IV SCH ×2 (10:16→21:50)
[2018-10-30] MEDS: ASPIRIN EC 81 MG TAB PO SCH (10:16)
[2018-10-30] MEDS: Levofloxacin 750mg IV 750 MG/150 ML BAG IV SCH (10:18)
--- NOTE | 2018-10-30 13:24 | P.PN ---
Subjective Date of Service: 10/30/18 Chief Complaint: DYSPNEA Subjective: Improving HE KNOWS THAT HE HAS NOT BEHAVED WELL FOR HABITS IN LAST 6 MTHS. Review of Systems 10-point ROS is otherwise unremarkable Respiratory: Shortness of Breath Physical Examination - Vital Signs Temperature: 97.6 F Blood Pressure: 156/70 Pulse: 69 Respirations: 18 Pulse Ox (%): 99 - Physical Exam General: Alert, In no apparent distress HEENT: Atraumatic, PERRLA, EOMI Neck: Supple, JVD not distended Respiratory: Clear to auscultation bilaterally, Normal air movement Cardiovascular: Regular rate/rhythm, Normal S1 S2 Gastrointestinal: Normal bowel sounds, No tenderness Musculoskeletal: No tenderness Integumentary: No rashes Neurological: Normal speech, Normal tone, Normal affect Lymphatics: No axilla or inguinal lymphadenopathy - Studies Medications List Reviewed: Yes Assessment And Plan - Current Problems (Diagnosis) (1) COPD exacerbation Current Visit: Yes Status: Acute Plan: STEROIDS IV. NEBS ABX IV. BIPAP PRN. PROGNOSIS GUARDED. I CALLED IN CHANTIX FROM OFFICE. (2) HTN (hypertension) Current Visit: Yes Status: Chronic Plan: WATCHED IN OFFICE RTN. Qualifiers: Hypertension type: essential hypertension Qualified Code(s): I10 - Essential (primary) hypertension
--- NOTE | 2018-10-30 15:17 | EKG ---
Test Date: 2018-10-30 Test Time: 09:01:35 Plant Operator Helper: ALINA MEASUREMENT RESULTS: Intervals: Rate: 92 NC: 166 QRSD: 142 QT: 396 QTc: 489 [place]: P: 66 NC: 166 QRS: -71 T: 43 INTERPRETIVE STATEMENTS: Normal sinus rhythm Possible Left atrial enlargement Right bundle branch block Left axis Abnormal ECG Compared to ECG 10/29/2018 09:48:32 no significant change from previous ECG Electronically Signed On 10-30-18 15:16:44 CDT by Irving Lee
--- NOTE | 2018-10-30 16:41 | ECHO ---
HEIGHT: 6 ft 1 in WEIGHT: 319 lb 0 oz DATE OF STUDY: 10/30/[address]: Kenyon Collins MD 2-DIMENSIONAL: YES M.MODE: YES DOPPLER: YES COLOR FLOW: YES TDS: PORTABLE: DEFINITY: BUBBLE STUDY: DIAGNOSIS: EDEMA, DYSPNEA CARDIAC HISTORY: CATHERIZATION: SURGERY: PROSTHETIC VALVE: PACEMAKER: MEASUREMENTS (cm) DIASTOLIC (NORMALS) SYSTOLIC (NORMALS) IVSd 1.1 (0.6-1.2) LA Diam 4.8 (1.9-4.0) LVEF 60-69% LVIDd 5.3 (3.5-5.7) LVIDs 3.8 (2.0-3.5) %FS 28% LVPWd 1.3 (0.6-1.2) Ao Diam 3.6 (2.0-3.7) 2 DIMENSIONAL ASSESSMENT: RIGHT ATRIUM: NORMAL LEFT ATRIUM: DILATED RIGHT VENTRICLE: NORMAL LEFT VENTRICLE: LEFT VENTRICULAR HYPERTROPHY TRICUSPID VALVE: NORMAL MITRAL VALVE: NORMAL PULMONIC VALVE: NORMAL AORTIC VALVE: NORMAL PERICARDIAL EFFUSION: NONE AORTIC ROOT: NORMAL LEFT VENTRICULAR WALL MOTION: NORMAL DOPPLER/COLOR FLOW: NORMAL COMMENTS: NORMAL LEFT VENTRICULAR EJECTION FRACTION. LEFT VENTRICULAR HYPERTROPHY. DILATED LEFT ATRIUM. TECHNOLOGIST: TRESA ORTEGA
[2018-10-31] MEDS: METHYLPREDNISOLONE 40 MG INJ IV SCH ×2 (00:23→05:10)
[2018-10-31 02:22] LABS: Urine Appearance CLEAR; Urine Bilirubin NEGATIVE (NEG); Urine Blood NEGATIVE (NEG); Urine Color YELLOW; Urine Glucose NEGATIVE (NEG); Urine Protein TRACE (NEG); Urine Specific Gravity >=1.030 (1.005-1.030); Urine Urobilinogen 0.2 mg/dL (0.2-1.0)
[2018-10-31 02:27] LABS: Urine Microscopic Reflex ORDER UMIC
[2018-10-31 03:32] LABS: Urine Culture Reflex Order NOT NEEDED
[2018-10-31 03:33] LABS: Urine Bacteria <20 /HPF (NONE SEEN); Urine RBC <5 /HPF (NONE SEEN)
[2018-10-31] MEDS: CELECOXIB 100 MG CAPSULE PO SCH (09:00)
[2018-10-31] MEDS: BISOPROLOL 5 MG TABLET PO SCH (09:37)
[2018-10-31] MEDS: FENOFIBRATE 160 MG TAB PO SCH (09:37)
[2018-10-31] MEDS: ASPIRIN EC 81 MG TAB PO SCH (09:39)
[2018-10-31] MEDS: ENOXAPARIN 40 MG/0.4 ML SQ SCH (09:39)
[2018-10-31] MEDS: FAMOTIDINE 20 MG/2 ML VIAL IV SCH (09:39)
[2018-10-31] MEDS: ALBUTEROL 2.5 MG/3 ML NEB SOL NEB PRN ×2 (10:10→14:47)
[2018-10-31] MEDS: IPRATROPIUM BROM 0.5MG/2.5ML NEB PRN ×2 (10:10→14:47)
[2018-10-31] MEDS: ARFORMOTEROL TARTRATE 15 MCG/2 ML VIAL.NEB NEB SCH ×2 (10:10→20:00)
[2018-10-31] MEDS: METHYLPREDNISOLONE 125 MG INJ IV SCH ×3 (13:07→23:48)
[2018-10-31] MEDS: Levofloxacin 750mg IV 750 MG/150 ML BAG IV SCH (13:07)
--- NOTE | 2018-10-31 13:28 | P.PN ---
Subjective Date of Service: 10/31/18 Chief Complaint: DYSPNEA Subjective: No new changes HE KNOWS THAT HE HAS NOT BEHAVED WELL FOR HABITS IN LAST 6 MTHS. STILL SHORT OF BREATH. NO CHEST PAIN. HE HAS NOT DONE SLEEP STUDY YET. Review of Systems 10-point ROS is otherwise unremarkable Physical Examination - Vital Signs Temperature: 96.9 F Blood Pressure: 135/74 Pulse: 66 Respirations: 20 Pulse Ox (%): 88 - Physical Exam General: Alert, Mild distress HEENT: Atraumatic, PERRLA, EOMI Neck: Supple, JVD not distended Respiratory: Diminished Cardiovascular: Regular rate/rhythm, Normal S1 S2 Gastrointestinal: Normal bowel sounds, No tenderness Musculoskeletal: No tenderness Integumentary: No rashes Neurological: Normal speech, Normal tone, Normal affect Lymphatics: No axilla or inguinal lymphadenopathy - Studies Medications List Reviewed: Yes Assessment And Plan - Current Problems (Diagnosis) (1) COPD exacerbation Current Visit: Yes Status: Acute Plan: STEROIDS IV. NEBS ABX IV. BIPAP PRN. PROGNOSIS GUARDED. I CALLED IN CHANTIX FROM OFFICE. PURVI POLLACK BID ADDED ABG ORDER. RAISE SOLUMEDROL IV. (2) HTN (hypertension) Current Visit: Yes Status: Chronic Plan: WATCHED IN OFFICE RTN. Qualifiers: Hypertension type: essential hypertension Qualified Code(s): I10 - Essential (primary) hypertension
[2018-10-31 17:39] LABS: Arterial Blood Carboxyhemoglob 1.2 % (0-1.5); Blood Gas Oxyhemoglobin 80.6 % (94-97); Blood O2 Saturation 82.1 % (92-98.5)
[2018-10-31] MEDS: FAMOTIDINE 20 MG TAB PO SCH (20:53)
[2018-11-01] MEDS: METHYLPREDNISOLONE 125 MG INJ IV SCH ×3 (05:33→17:20)
[2018-11-01] MEDS: ARFORMOTEROL TARTRATE 15 MCG/2 ML VIAL.NEB NEB SCH ×2 (08:35→20:00)
[2018-11-01] MEDS: ENOXAPARIN 40 MG/0.4 ML SQ SCH (09:07)
[2018-11-01] MEDS: FAMOTIDINE 20 MG TAB PO SCH ×2 (09:08→20:38)
[2018-11-01] MEDS: FENOFIBRATE 160 MG TAB PO SCH (09:08)
[2018-11-01] MEDS: ASPIRIN EC 81 MG TAB PO SCH (09:08)
[2018-11-01] MEDS: BISOPROLOL 5 MG TABLET PO SCH (09:09)
[2018-11-01] MEDS: Levofloxacin 750mg IV 750 MG/150 ML BAG IV SCH (11:59)
--- NOTE | 2018-11-01 21:13 | P.PN ---
Subjective Date of Service: 11/01/18 Chief Complaint: DYSPNEA Subjective: Improving HE KNOWS THAT HE HAS NOT BEHAVED WELL FOR HABITS IN LAST 6 MTHS. STILL SHORT OF BREATH. NO CHEST PAIN. HE HAS NOT DONE SLEEP STUDY YET. HE WANTED TO GO HOME TODAY.I CALLED CHARGE NURSE AT 10 AM TO GIVE VERBAL ORDER FOR OXYGEN, NEBULIZER MACHINE, SUPPLIES. AT 4 PM NURSE CALLED ME TO ASK THEY NEED MY SIGNATURE. SECOND FLOOR HAS MY PRESIGNED ORDERS FOR OXYGEN THEY COULD NOT FIND. I HAD THEM FAX ORDER TO ME STAT AND SEND IT BACK WITHIN SECONDS. DISCHARGE DELAYED PATIENT CAN'T GET OXYGEN TODAY AND SAME FOR NEBULIZER. I ASKED NURSE TO GET HIM NEBULIZER FROM [facility] OR [facility] AND HE CAN BUY IT FOR LESS THAN $40. THIS DID NOT HAPPEN ALSO AND MAY HAPPEN IN AM. Review of Systems 10-point ROS is otherwise unremarkable General: Weakness, Malaise Respiratory: Shortness of Breath Physical Examination - Vital Signs Temperature: 97.8 F Blood Pressure: 167/101 Pulse: 76 Respirations: 20 Pulse Ox (%): 93 - Physical Exam General: Mild distress, Obese HEENT: Atraumatic, PERRLA, EOMI Neck: Supple, JVD not distended Respiratory: Clear to auscultation bilaterally, Normal air movement Cardiovascular: Regular rate/rhythm, Normal S1 S2 Gastrointestinal: Normal bowel sounds, No tenderness Musculoskeletal: No tenderness Integumentary: No rashes Neurological: Normal speech, Normal tone, Normal affect Lymphatics: No axilla or inguinal lymphadenopathy - Studies Medications List Reviewed: Yes Assessment And Plan - Current Problems (Diagnosis) (1) COPD exacerbation Current Visit: Yes Status: Acute Plan: STEROIDS IV. NEBS ABX IV. BIPAP PRN. PROGNOSIS GUARDED. I CALLED IN WENDYX FROM OFFICE. PURVI POLLACK BID ADDED ABG ORDER. RAISE SOLUMEDROL IV HE FEELS A LOT BETTER. HE WILL GO HOME IN AM AFTER CHARGE NURSE AND FLOORHAND ARE ABLE TO ARRANGE FOR SUPPLIES AND EQUIPMENTS. (2) HTN (hypertension) Current Visit: Yes Status: Chronic Plan: WATCHED IN OFFICE RTN. Qualifiers: Hypertension type: essential hypertension Qualified Code(s): I10 - Essential (primary) hypertension
[2018-11-01 21:25] LABS: Absolute Lymphocytes (CBC) 0.5 K/uL (0.7-4.9); Absolute Neutrophil 9.2 K/uL (1.8-8.0); Basophils % 0.2 % (0-1.3); Lymphocytes % 4.4 % (15.3-44.8); MPV 7.8 fL (7.6-11.3); Monocytes % 9.6 % (3.3-12.3); RBC Red Blood Cell Count 5.23 M/uL (4.33-5.43)
[2018-11-01 21:41] LABS: Potassium 4.4 mmol/L (3.5-5.1)
[2018-11-01 22:42] LABS: Blood Morphology Comment NOT SEEN (NOT SEEN); Platelet Estimate ADEQ; Urine White Blood Cell Casts OK
[2018-11-02] MEDS: METHYLPREDNISOLONE 125 MG INJ IV SCH ×3 (05:03→11:22)
[2018-11-02] MEDS: ENOXAPARIN 40 MG/0.4 ML SQ SCH (08:49)
[2018-11-02] MEDS: FAMOTIDINE 20 MG TAB PO SCH (08:50)
[2018-11-02] MEDS: FENOFIBRATE 160 MG TAB PO SCH (08:50)
[2018-11-02] MEDS: ASPIRIN EC 81 MG TAB PO SCH (08:50)
[2018-11-02] MEDS: BISOPROLOL 5 MG TABLET PO SCH (08:50)
[2018-11-02] MEDS: ARFORMOTEROL TARTRATE 15 MCG/2 ML VIAL.NEB NEB SCH (08:57)
[2018-11-02] MEDS: IPRATROPIUM BROM 0.5MG/2.5ML NEB PRN (08:57)
[2018-11-02] MEDS: Levofloxacin 750mg IV 750 MG/150 ML BAG IV SCH (11:00)
[2018-11-02 12:42] LABS: Arterial Blood Carboxyhemoglob 1.3 % (0-1.5); Blood O2 Saturation 86.6 % (92-98.5)
--- NOTE | 2018-11-02 12:49 | P.DS ---
Admission Date: 10/29/18 Discharge Date: 11/02/18 Disposition: ROUTINE DISCHARGE Reason for Admission: DYSPNEA - Problems (1) COPD exacerbation Current Visit: Yes Status: Acute (2) HTN (hypertension) Current Visit: Yes Status: Chronic Qualifiers: Hypertension type: essential hypertension Qualified Code(s): I10 - Essential (primary) hypertension Brief History of Present Illness: IS A SMOKER WHO STARTED TO GET DYSPNEIC OVER TIME NOW WORSE FOR LAST 3 DAYS. HE HAS NO CHEST PAIN. HE HAD QUIT BUT GOT BACK TO SMOKING ABOUT 6 MONTHS AGO WHEN HE RETIRED. HE IS DYSPNEIC AT REST. CAME WITH SEVERE COPD EXACERBATION. IT TOOK A FEW DAYS, HIGH DOSE OF IV STEROIDS, NEBS INCLUDING BROVANA AND BIPAP TO IMPROVE HIME. NOW THE O2 SAT IS 86% RA COMPARED TO 60% BEFORE. HE WILL GO HOME ON OXYGEN AND MEDICATIONS WITH NEBS. Vital Signs/Physical Exam: Temp Pulse Resp BP Pulse Ox 97.4 F 64 20 159/105 H 90 L 11/02/18 08:00 11/02/18 08:50 11/02/18 08:00 11/02/18 08:50 11/02/18 08:00 Laboratory Data at Discharge: WBC 10.7 K/uL (4.3-10.9) D 11/01/18 21:13 Hgb 16.8 g/dL (13.6-17.9) 11/01/18 21:13 Hct 51.0 % (39.6-49.0) H 11/01/18 21:13 Plt Count 140 K/uL (152-406) L 11/01/18 21:13 PT 12.3 SECONDS (9.5-12.5) 10/29/18 11:05 INR 1.04 10/29/18 11:05 Sodium 145 mmol/L (136-145) 11/01/18 21:13 Potassium 4.4 mmol/L (3.5-5.1) 11/01/18 21:13 BUN 19 mg/dL (7-18) H 11/01/18 21:13 Creatinine 1.02 mg/dL (0.55-1.3) 11/01/18 21:13 Glucose 128 mg/dL (74-106) H 11/01/18 21:13 Magnesium 2.1 mg/dL (1.8-2.4) 10/29/18 11:05 Total Bilirubin 0.5 mg/dL (0.2-1.0) 10/29/18 11:05 AST 47 U/L (15-37) H 10/29/18 11:05 ALT 42 U/L (12-78) 10/29/18 11:05 Alkaline Phosphatase 99 U/L (45-117) 10/29/18 11:05 Troponin I < 0.02 ng/mL (0.0-0.045) 10/29/18 19:06 Home Medications: Bisoprolol Fumarate [Zebeta*] 10 mg PO DAILY 10/29/18 Celecoxib 200 mg PO DAILY 10/29/18 Fenofibrate [Tricor*] 145 mg pe PO DAILY 10/29/18 predniSONE [Prednisone*] 40 mg PO DAILY 10/29/18 Arformoterol Tartrate [Brovana] 15 mcg NEB Q12H #120 ml 11/01/18 Ipratropium/Albuterol Sulfate [Iprat-Albut 0.5-3(2.5) mg/3 ml] 3 ml NEB Q12H # 180 ml 11/01/18 Methylprednisolone [Medrol dosepack] 4 mg PO DIRECTED #1 khadar 11/01/18 New Medications: Arformoterol Tartrate [Brovana] 15 mcg NEB Q12H #120 ml Ipratropium/Albuterol Sulfate [Iprat-Albut 0.5-3(2.5) mg/3 ml] 3 ml NEB Q12H # 180 ml Methylprednisolone [Medrol dosepack] 4 mg PO DIRECTED #1 khadar Patient Discharge Instructions: FOLLOW UP NEXT WEEK. KEEP OXYGEN DOWN TO 2 LT NASAL CANULA. Diet: AHA Activity: Ad travis
== END 2018-11-02 15:15 | disposition home or self-care (01) | DRG 191 ==
LOC: ER 10:11 → ERHOLD 11:19 → 2ND 12:54
PROVIDERS: ADMIT Internal Medicine; ATTEND Internal Medicine
PROC: 5A09457 Assistance with Respiratory Ventilation, 24-96 Consecutive Hours, Continuous Positive Airway Pressure (ICD-10-PCS; principal; 2018-10-29)
DX: J44.1 Chronic obstructive pulmonary disease with (acute) exacerbation (principal); Z68.41 Body mass index [BMI] 40.0-44.9, adult; I10 Essential (primary) hypertension; F17.210 Nicotine dependence, cigarettes, uncomplicated; E66.9 Obesity, unspecified
CPT/HCPCS: 36415; 71045; 80048; 80076; 81003; 81015; 82805; 83735; 83880; 84484; 85025; 85379; 85610; 87040; 93005; 93306; 94640; 94660; 94760; 96365; 96366; 96372; 96375; 99285; J1650; J2920; J2930; J3475; J7030; J7512; J7605

== ENCOUNTER 2024-04-24 06:10 | Day surgery (SDC) | payer OTHER ==
[2024-04-20 14:29] LABS: Sqamous Epithelial None Seen /HPF (None Seen); Urine Bacteria None Seen /HPF (<20); Urine Bilirubin NEGATIVE (Negative); Urine Blood Negative (Negative); Urine Clarity Clear (Clear); Urine Color Yellow (Yellow); Urine Culture Reflex Order NOT NEEDED; Urine Glucose NEGATIVE (Negative); Urine Ketones NEGATIVE (Negative); Urine Microscopic Reflex YN ORDER UMIC; Urine Nitrite NEGATIVE (Negative); Urine Protein TRACE (Negative); Urine RBC None Seen /HPF (None Seen); Urine Urobilinogen 1+ (Normal); Urine WBC <5 /HPF (<5); Urine pH 7.5 (5.0-7.0)
[2024-04-20 14:42] LABS: Absolute Basophils 0.1 K/uL (0-0.5); Absolute Eosinophils 0.1 K/uL (0-0.5); Absolute Lymphocytes (CBC) 0.6 K/uL (0.7-4.9); Absolute Monocytes 0.8 K/uL (0.1-1.3); Absolute Neutrophil 5.7 K/uL (1.8-8.0); Eosinophils % 0.9 % (0-4.4); Hematocrit 45.9 % (39.6-49.0); Hemoglobin 15.2 g/dL (13.6-17.9); Lymphocytes % 8.8 % (15.3-44.8); MCH 32.5 pg (27.0-35.0); MCV 98.3 fL (80-100); MPV 7.9 fL (7.6-11.3); Monocytes % 11.2 % (3.3-12.3); Neutrophils % 78.1 % (41.7-73.7); Platelets 145 thou/uL (152-406); RBC Red Blood Cell Count 4.66 M/uL (4.33-5.43); Red Cell Distribution Width 13.7 % (12.1-15.2)
[2024-04-20 14:45] LABS: Albumin 3.8 g/dL (3.4-5.0); Albumin/Globulin Ratio 0.9 (1.1-1.8); Bilirubin Total 0.8 mg/dL (0.2-1.0); Globulin 4.4 g/dL (2.3-3.5); Protein, Total 8.2 g/dL (6.4-8.2)
[2024-04-20 14:47] LABS: PTT, Activated Partial Thromb 39.2 SECONDS (24.3-36.9); Protime INR 1.07
[2024-04-24] MEDS: MORPHINE SULFATE/PF 1 MG/ML (10 ML AMP) ONE (06:24)
[2024-04-24] MEDS: Ringers Lactate 1,000 ML IV ONE ×2 (06:30→08:57)
[2024-04-24] MEDS ORDERED: FENTANYL CITR 100 MCG/2 ML ONE (06:31)
[2024-04-24] MEDS ORDERED: propofoL 200 MG/20 ML VIAL IV ONE (06:31)
[2024-04-24] MEDS ORDERED: LIDOCAINE 1% MPF 5 ML VIAL ONE (06:31)
[2024-04-24] MEDS ORDERED: MIDAZOLAM HCL 2 MG/2 ML INJ ONE (06:31)
[2024-04-24] MEDS ORDERED: EPINEPHRINE 1 MG/ML VIAL ONE (06:32)
[2024-04-24] MEDS: BUPIVACAINE 0.75% (PF) 2 ML SP ONE ×2 (06:46→06:50)
[2024-04-24] MEDS: ACETAMINOPHEN 500 MG TAB ONE (06:49)
[2024-04-24] MEDS: Oxycodone HCl/Acetaminophen 5/325 MG TAB ONE (06:49)
[2024-04-24] MEDS: CELECOXIB 100 MG CAPSULE ONE (06:49)
[2024-04-24] MEDS: CEFAZOLIN SODIUM 2 GM/VIAL ONE (07:16)
[2024-04-24] MEDS: TRANEXAMIC ACID 1,000 MG/10 ML VIAL IV ONE (07:17)
[2024-04-24] MEDS ORDERED: EPHEDRINE SULF 50 MG/ML VIAL ONE (07:44)
[2024-04-24] MEDS ORDERED: Phenylephrine HCl 10 MG/ML 1 ML VIAL ONE (08:44)
--- NOTE | 2024-04-24 10:07 | P.BOP ---
Preoperative diagnosis: right hip arthritis Postoperative diagnosis: same Primary procedure: right total hip Estimated blood loss: 150ccs Anesthesia: General Complications: None Transferred to: Recovery Room Condition: Good
[2024-04-24] MEDS ORDERED: ONDANSETRON 4 MG/2 ML VIAL IV PRN ×2 (10:27→10:37)
--- NOTE | 2024-04-24 10:42 | OP ---
Date of Procedure: 04/24/2024 Surgeon: Bashir Bermudez MD Preoperative Diagnosis: Severe right hip arthritis. Postoperative Diagnosis: Severe right hip arthritis. Procedure: Right total hip arthroplasty using the [place] system. Estimated Blood Loss: 150 cc. Complications: There were no complications. Indications For Operation: Mr. Farrell is a 63-year-old male who weighs over 300 pounds, but unfortun ately has had horrible pain related to his hip. He also has probable pain related to his back as wel l. He is basically suffering quite a bit and we discussed that given his weight, this could be more difficult to do and potential complication is higher. He says he understands everything as presented , but wishes to proceed and does have clearance. All of his questions were otherwise invited and ans wered. Description Of Procedure: Patient was taken to the operating room. Spinal anesthesia was obtained b y Anesthesia staff. Following this, he was then rolled left side down and right lower extremity was then prepped and draped in the usual sterile fashion for the procedure. Following this, a standard p osterior lateral incision was taken down carefully through skin and soft tissues. Meticulous hemosta sis being maintained using Bovie electrocautery. There was a generous amount of adipose tissue. The fascia was then encountered. A small stab wound was made in the fascia and gluteal tendon was palpa michelle ensuring we were in correct position. After this, the fascial incision was then brought carefull y up until near the tip of the greater trochanter where the gluteus harshad muscles were encountered. These were then spread using finger pressure and internally it was placed to protect the sciatic ne rve. Some of fat and bursa were removed with care being taken to avoid injury to the sciatic nerve, which allowed for better visualization of the external rotators and the abductors was then protected as the external rotators and capsule were then taken down and tagged for later repair. The hip was t hen dislocated and a neck cut was made. The head was sized using ring gauges. After this, the aceta bulum was inspected. It was quite deep, making visualization fairly difficult. The labrum was then removed as well as any material or soft tissue within the acetabulum. A size 53 reamer was then used . It was reamed up to a size 57, which measures 2 mm larger than the head. It was very difficult to visualize, and I do not think that getting a 58 or 59 would have been easy at all. Most likely, it would lead to problems with reaming. Therefore, a decision was made to place a 58 cup. 58 cup was p laced. It did have fairly good fixation, but could be moved. Therefore, decision was made to place 1 screw. After the screw was placed, it was again checked with x-ray. It would have been good to pl billie another screw; however, other positions for screws were either extremely difficult to access lena use of the patient's size or screw holes which could endanger neurovascular structures. The cup was felt vigorously and it was felt to be quite secure with the 1 screw. The liner was then placed. The femur had been previously broached to a size 7 without difficulty and a size 7 stem was then placed. It was then reduced with a standard ball. He does come to full extension with a standard ball, fle xion to 90 degrees, and adduction to approximately 25 degrees. Decision was made to lengthen this as being quite difficult for repeated problems and he does have a history of falling at home, and decis ion made to make a construct which was somewhat tighter and perhaps make this up using a shoe lift if needed because of his size. This was then trialed with a +4. +4 also relocates and it is now stabl e to flexion to 90 degrees, full adduction, internal rotation to approximately 45 degrees, and decisi on was made to keep this. The ball was then removed and the wound was copiously irrigated. This was followed by placement of the final ball. Final ball was placed within the acetabulum. It was then irrigated. The external rotators and capsule were then repaired back via bone tunnels. It was again irrigated. The fascia was closed in a watertight fashion using heavy Vicryl sutures. This was foll owed by closure of the skin using Vicryl sutures followed by giuliana. The patient was then placed in Aquacel dressing, awakened, and taken to the recovery room in good condition. There were no complications. /MODL Voice ID: [id number] Report ID: [id number]
--- NOTE | 2024-04-24 11:34 | RAD REPORT ---
EXAM DESCRIPTION: RAD - Hip Right 1 View - 04/24/2024 9:34 am CLINICAL HISTORY: TOTAL HIP IN OR COMPARISON: No comparisons TECHNIQUE: Right hip, 2 views. FINDINGS: Acetabular cup component of right femoral prosthesis has been placed, in expected location . Status post tummy. Surgical metallic instruments in place which somewhat obscures evaluation. Incis ion along the lateral upper thigh. IMPRESSION: Intraoperative right hip views as above.
[2024-04-24 11:47] VITALS: BMI 41.3
[2024-04-24 12:57] LABS: Hematocrit 40.2 % (39.6-49.0); Hemoglobin 12.9 g/dL (13.6-17.9)
--- NOTE | 2024-04-24 16:12 | P.CNS ---
Date of Consult: 04/24/24 Reason for Consult: medical management Chief Complaint: Status post right total hip arthroplasty History of Present Illness: Patient is a 63-year-old gentleman to come to the hospital for status post right total hip arthroplasty. Patient with a history of hypertension, COPD, dyslipidemia who presented with long-term pain in her right hip. Dr. Bermudez scheduled for outpatient right total hip arthroplasty. Patient had surgery performed earlier today. She is doing well in the perioperative period. Her medical conditions are fairly stable. Hemodynamically stable and respiratory status is stable. Patient will be admitted for extended recovery status post right total hip arthroplasty. Will do physical therapy in the morning and if she does well anticipate discharge home. Allergies amlodipine Allergy (Verified 04/20/24 13:20) Anaphylaxis Home Medications: Albuterol Sulfate [Albuterol Sulfate Hfa] 1 - 2 puff IH Q4HP PRN 04/20/24 Atorvastatin Calcium 10 mg PO DAILY 04/20/24 Furosemide [Lasix] 20 mg PO DAILY 04/20/24 Gabapentin 300 mg PO DAILY 04/20/24 Lisinopril [Zestril] 10 mg PO DAILY 04/20/24 Tiotropium [place] [Spiriva Respimat] 2 puff IH DAILY 04/20/24 bisoproloL fumarate [Bisoprolol Fumarate] 10 mg PO DAILY 04/20/24 - Past Medical/Surgical History Diabetic: No -: HTN -: FREDO -: Vapes -: Arthritis -: cyst removed -: nerve removed side of face -: left big toe - Family History Father Medical History: Cancer Notes: COLON CANCER - Mother Medical History: Cancer Notes: LUNG CANCER, ALZHEIMERS - Social History Smoking Status: Current every day smoker Alcohol use: Yes CD- Drugs: No Caffeine use: No Place of Residence: Home Review of Systems 10-point ROS is otherwise unremarkable Physical Examination Temp Pulse Resp BP Pulse Ox 98.0 F 63 12 106/66 98 04/24/24 12:00 04/24/24 12:04/24/24 12:00 04/24/24 12:00 04/24/24 12:00 General: Alert, In no apparent distress, Oriented x3 HEENT: Atraumatic, PERRLA, Mucous membr. moist/pink, EOMI, Sclerae nonicteric Neck: Supple, 2+ carotid pulse no bruit, No LAD, Without JVD or thyroid abnormality Respiratory: Clear to auscultation bilaterally, Normal air movement Cardiovascular: Regular rate/rhythm, Normal S1 S2 Gastrointestinal: Normal bowel sounds, Soft and benign, Non-distended, No tenderness Musculoskeletal: No clubbing, No swelling, Tenderness, Other (Limited range of motion at this time) Neurological: Sensation intact, Cranial nerves 3-12 intact, Normal affect, Abnormal gait, Abnormal strength Lymphatics: No axilla or inguinal lymphadenopathy Laboratory Data (last 24 hrs) 04/24/24 12:36 Hgb 12.9 L Hct 40.2 - Problems (1) Status post total hip replacement, right Current Visit: Yes Status: Acute (2) COPD exacerbation Current Visit: No Status: Acute (3) HTN (hypertension) Current Visit: No Status: Chronic Conclusions/ Impression: Plan: 1. Continue with physical therapy evaluation 2. Pain control 3. DVT prophylaxis 4. Outpatient physical therapy with home health or inpatient rehab versus outpatient physical therapy 5. Resume antihypertensives 6. Resume inhaler therapy for COPD 7. Resume statin therapy Patient will be admitted for extended recovery during observation stay. Critical Care: No Time Spent Managing Pts care (In Minutes): 40
[2024-04-24] MEDS: CEFAZOLIN 1 GM in NA CHLORIDE 0.9% 50 ML IVPB SCH (16:48)
[2024-04-24 17:30] LABS: Hematocrit 38.1 % (39.6-49.0); Hemoglobin 12.6 g/dL (13.6-17.9)
[2024-04-24] MEDS: MELATONIN 5 MG TABLET PO PRN (21:20)
[2024-04-24] MEDS: ENOXAPARIN 40 MG/0.4 ML SQ SCH (21:20)
[2024-04-25] MEDS: DIPHENHYDRAMINE 50 MG/ML VIAL IV PRN (01:05)
[2024-04-25 04:57] LABS: Hematocrit 36.4 % (39.6-49.0); Hemoglobin 12.3 g/dL (13.6-17.9)
--- NOTE | 2024-04-25 07:34 | P.PN ---
Date of Service: 04/25/24 Subjective Review of Systems 10-point ROS is otherwise unremarkable Physical Examination General: Alert, In no apparent distress, Oriented x3 HEENT: Atraumatic, PERRLA, Mucous membr. moist/pink, EOMI, Sclerae nonicteric Neck: Supple, 2+ carotid pulse no bruit, No LAD, Without JVD or thyroid abnormality Respiratory: Clear to auscultation bilaterally, Normal air movement Cardiovascular: Regular rate/rhythm, Normal S1 S2 Gastrointestinal: Normal bowel sounds, Soft and benign, Non-distended, No tenderness Musculoskeletal: No clubbing, No swelling, Tenderness, Other (Limited range of motion at this time) Neurological: Sensation intact, Cranial nerves 3-12 intact, Normal affect, Abnormal gait, Abnormal strength Lymphatics: No axilla or inguinal lymphadenopathy - Problems (1) Status post total hip replacement, right Current Visit: Yes Status: Acute (2) COPD exacerbation Current Visit: No Status: Acute (3) HTN (hypertension) Current Visit: No Status: Chronic Conclusions/ Impression: Plan: 1. Continue with physical therapy evaluation 2. Pain control 3. DVT prophylaxis 4. Outpatient physical therapy with home health or inpatient rehab versus outpatient physical therapy 5. Resume antihypertensives 6. Resume inhaler therapy for COPD 7. Resume statin therapy Patient will be admitted for extended recovery during observation stay. Critical Care: No Time Spent Managing Pts care (In Minutes): 30
[2024-04-25] MEDS ORDERED: CYCLOBENZAPRINE 10 MG TAB PO PRN (07:38)
[2024-04-25 08:05] LABS: Albumin 3.3 g/dL (3.4-5.0); Phosphorus 4.5 mg/dL (2.5-4.9)
[2024-04-25] MEDS: HYDROCODONE/APAP 7.5/325 MG TAB PO PRN (08:05)
[2024-04-25 08:36] LABS: Absolute Basophils 0.1 K/uL (0-0.5); Absolute Eosinophils 0.1 K/uL (0-0.5); Absolute Monocytes 0.9 K/uL (0.1-1.3); Basophils % 0.7 % (0-1.3); Eosinophils % 0.5 % (0-4.4); Hematocrit 38.6 % (39.6-49.0); Hemoglobin 12.8 g/dL (13.6-17.9); Lymphocytes % 9.3 % (15.3-44.8); MCHC 33.1 g/dL (32.0-36.0); MCV 99.7 fL (80-100); MPV 8.3 fL (7.6-11.3); Monocytes % 7.8 % (3.3-12.3); Neutrophils % 81.7 % (41.7-73.7); Nucleated Red Blood Cells % 0.2 % (0-0); Platelets 178 thou/uL (152-406); RBC Red Blood Cell Count 3.87 M/uL (4.33-5.43); Red Cell Distribution Width 13.7 % (12.1-15.2)
--- NOTE | 2024-04-25 08:48 | P.DS ---
Discharge Date: 04/25/24 Reason for Admission: Status post right total hip arthroplasty Brief History of Present Illness: 63-year-old gentleman to come to the hospital for status post right total hip arthroplasty. Patient with a history of hypertension, COPD, dyslipidemia who presented with long-term pain in her right hip. Dr. Bermudez scheduled for outpatient right total hip arthroplasty. Patient had surgery performed earlier today. He is doing well in the perioperative period. Her medical conditions are fairly stable. Hemodynamically stable and respiratory status is stable. Patient will be admitted for extended recovery status post right total hip arthroplasty. Will do physical therapy in the morning and if she does well anticipate discharge home. General: Alert, In no apparent distress, Oriented x3 HEENT: Atraumatic, PERRLA, Mucous membr. moist/pink, EOMI, Sclerae nonicteric Neck: Supple, 2+ carotid pulse no bruit, No LAD, Without JVD or thyroid abnormality Respiratory: Clear to auscultation bilaterally, Normal air movement Cardiovascular: Regular rate/rhythm, Normal S1 S2 Gastrointestinal: Normal bowel sounds, Soft and benign, Non-distended, No tenderness Musculoskeletal: No clubbing, No swelling, Tenderness, Other (Limited range of motion at this time) Neurological: Sensation intact, Cranial nerves 3-12 intact, Normal affect, Abnormal gait, Abnormal strength Lymphatics: No axilla or inguinal lymphadenopathy Hospital Course: 63-year-old gentleman to come to the hospital for status post right total hip arthroplasty. Patient with a history of hypertension, COPD, dyslipidemia who presented with long-term pain in her right hip. Dr. Bermudez scheduled for outpatient right total hip arthroplasty. Patient had surgery performed earlier today. He is doing well in the perioperative period. Hemodynamically stable a nd respiratory status is stable. Status post recovery status post right total hip arthroplasty.He has ambulated with PT, HHC with PT has been arranged by Dr Bermudez. He has Pain , anticoagulation medications per Dr Bermudez. Continue home medicines as previously prescribed Instructed no driving on her own as needed analgesics, Hip precautions, Patient has rolling walker at home, GOAL: Clear understanding of disease process INSTRUCTIONS: Physician Discharge Instructions: -Follow-up with Dr. Bermudez -Call Dr. Bermudez's office for any fever, uncontrolled pain. -Follow-up with PCP in 1 to 2 weeks -Please call Dr. Lima at [phone] if any questions regarding hospital stay -Please call nursing station at [phone] if any nursing or medication questions -Return to the emergency room if symptoms worsen Diet: ADA, low sodium Activity: Fall precautions <Belinda Cervantes - Last Filed: 04/25/24 16:11> Admission Date: 04/24/24 Discharge Date: 04/25/24 - Problems (1) Status post total hip replacement, right Status: Acute (2) COPD exacerbation Status: Acute (3) HTN (hypertension) Status: Chronic Hospital Course: Chart has been reviewed. Events of the last 24 hours have been noted. Case discussed with SUMAN. I performed a substantial part of the MDM during this patient's care today. I personally made or approved the documented management plan and acknowledge its risk of complications. I agree with the findings and documentation provided in the SUMAN's notes. Continue with outpatient physical therapy and continue with anticoagulation and pain control. <Jordan Lima - Last Filed: 05/04/24 03:38> Disposition: [facility] HOME/HOME HEALTH CARE Vital Signs/Physical Exam: Temp Pulse Resp BP Pulse Ox 98.3 F 110 H 16 106/63 94 04/25/24 04:00 04/25/24 04:00 04/25/24 08:05 04/25/24 04:00 04/25/24 08:05 Laboratory Data at Discharge: WBC 11.10 thou/uL (4.3-10.9) H 04/25/24 08:12 Hgb 12.8 g/dL (13.6-17.9) L 04/25/24 08:12 Hct 38.6 % (39.6-49.0) L 04/25/24 08:12 Plt Count 178 thou/uL (152-406) 04/25/24 08:12 PT 12.0 SECONDS (9.4-12.5) 04/20/24 13:46 INR 1.07 04/20/24 13:46 APTT 39.2 SECONDS (24.3-36.9) H 04/20/24 13:46 Sodium 138 mEq/L (136-145) 04/25/24 04:36 Potassium 4.0 mEq/L (3.5-5.1) 04/25/24 04:36 BUN 21 mg/dL (7-18) H 04/25/24 04:36 Creatinine 1.50 mg/dL (0.70-1.30) H 04/25/24 04:36 Glucose 90 mg/dL (74-106) 04/25/24 04:36 Phosphorus 4.5 mg/dL (2.5-4.9) 04/25/24 04:36 Total Bilirubin 0.8 mg/dL (0.2-1.0) 04/20/24 13:46 AST 51 U/L (15-37) H 04/20/24 13:46 ALT 37 U/L (16-61) 04/20/24 13:46 Alkaline Phosphatase 124 U/L (45-117) H 04/20/24 13:46 <Belinda Cervantes - Last Filed: 04/25/24 16:11> Vital Signs/Physical Exam: Temp Pulse Resp BP Pulse Ox 97.4 F 88 16 106/61 94 04/25/24 08:00 04/25/24 08:00 04/25/24 08:05 04/25/24 08:00 04/25/24 08:05 General: Alert, In no apparent distress, Oriented x3 Laboratory Data at Discharge: WBC 11.10 thou/uL (4.3-10.9) H 04/25/24 08:12 Hgb 12.8 g/dL (13.6-17.9) L 04/25/24 08:12 Hct 38.6 % (39.6-49.0) L 04/25/24 08:12 Plt Count 178 thou/uL (152-406) 04/25/24 08:12 PT 12.0 SECONDS (9.4-12.5) 04/20/24 13:46 INR 1.07 04/20/24 13:46 APTT 39.2 SECONDS (24.3-36.9) H 04/20/24 13:46 Sodium 138 mEq/L (136-145) 04/25/24 04:36 Potassium 4.0 mEq/L (3.5-5.1) 04/25/24 04:36 BUN 21 mg/dL (7-18) H 04/25/24 04:36 Creatinine 1.50 mg/dL (0.70-1.30) H 04/25/24 04:36 Glucose 90 mg/dL (74-106) 04/25/24 04:36 Phosphorus 4.5 mg/dL (2.5-4.9) 04/25/24 04:36 Total Bilirubin 0.8 mg/dL (0.2-1.0) 04/20/24 13:46 AST 51 U/L (15-37) H 04/20/24 13:46 ALT 37 U/L (16-61) 04/20/24 13:46 Alkaline Phosphatase 124 U/L (45-117) H 04/20/24 13:46 <Jordan Lima - Last Filed: 05/04/24 03:38> Diet: AHA Activity: HIP preacautions Time spent managing pt's care (in minutes): 55 <Belinda Cervantes - Last Filed: 04/25/24 16:11> <Jordan Lima - Last Filed: 05/04/24 03:38> Home Medications: Albuterol Sulfate [Albuterol Sulfate Hfa] 1 - 2 puff IH Q4HP PRN 04/20/24 Atorvastatin Calcium 10 mg PO DAILY 04/20/24 Furosemide [Lasix*] 20 mg PO DAILY 04/20/24 Gabapentin 300 mg PO DAILY 04/20/24 Lisinopril [Zestril] 10 mg PO DAILY 04/20/24 Tiotropium [place] [Spiriva Respimat] 2 puff IH DAILY 04/20/24 bisoproloL fumarate [Bisoprolol Fumarate] 10 mg PO DAILY 04/20/24 Physician Discharge Instructions: 63-year-old gentleman to come to the hospital for status post right total hip arthroplasty. Patient with a history of hypertension, COPD, dyslipidemia who presented with long-term pain in her right hip. Dr. Bermudez scheduled for outpatient right total hip arthroplasty. Patient had surgery performed earlier today. He is doing well in the perioperative period. Hemodynamically stable and respiratory status is stable. Status post recovery status post right total hip arthroplasty.He has ambulated with PT, HHC with PT has been arranged by Dr Bermudez. He has Pain medications per Dr Bermudez. Continue home medicines as previously prescribed GOAL: Clear understanding of disease process INSTRUCTIONS: Physician Discharge Instructions: -Follow-up with Dr. Bermudez -Call Dr. Bermudez's office for any fever, uncontrolled pain. -Follow-up with PCP in 1 to 2 weeks -Please call Dr. Lima at [phone] if any questions regarding hospital stay -Please call nursing station at [phone] if any nursing or medication questions -Return to the emergency room if symptoms worsen Diet: ADA, low sodium Activity: Fall precautions Followup: Bashir Bermudez MD [ACTIVE - CAN ADMIT] - 1-2 Weeks CHIN GUTIERREZ [Primary Care Provider] -
[2024-04-25 09:01] VITALS: O2SAT 94
[2024-04-25 09:47] VITALS: BP 106/61; TEMP 97.4
== END 2024-04-25 10:25 | disposition home health service (06) ==
LOC: OR 06:10 → 2ND 10:14 → OR 04-25 10:25
PROVIDERS: ATTEND Orthopaedic Surgery
PROC: 0SR90JA Replacement of Right Hip Joint with Synthetic Substitute, Uncemented, Open Approach (ICD-10-PCS; principal; 2024-04-24 07:00)
DX: M16.11 Unilateral primary osteoarthritis, right hip (principal); M25.551 Pain in right hip; J44.1 Chronic obstructive pulmonary disease with (acute) exacerbation; I10 Essential (primary) hypertension; M54.9 Dorsalgia, unspecified; E66.9 Obesity, unspecified; Z68.41 Body mass index [BMI] 40.0-44.9, adult
CPT/HCPCS: 36415; 80053; 80069; 81001; 85014; 85018; 85025; 85610; 85730; 88304; 88305; 88311; 94760; 94762; 97110; 97116; 97161; 97530; J0171; J0690; J1200; J1650; J2001; J2250; J2371; J2704; J3010; J7120